=== PATIENT | female | born 1955 | race Caucasian/White ===

== ENCOUNTER 2017-11-15 10:14 | Day surgery (SDC) | payer OTHER ==
[2017-11-15] MEDS ORDERED: CEFAZOLIN 1 GM INJ (11:56)
[2017-11-15] MEDS ORDERED: ONDANSETRON 4 MG INJ (11:56)
[2017-11-15] MEDS ORDERED: ROCURONIUM 50 MG INJ (11:56)
[2017-11-15] MEDS ORDERED: PROPOFOL 20 ML ×4 (11:56→14:10)
[2017-11-15] MEDS ORDERED: MIDAZOLAM 1 MG/ML 2 ML INJ (11:56)
[2017-11-15] MEDS ORDERED: METOCLOPRAMIDE 10 MG INJ (11:57)
[2017-11-15] MEDS ORDERED: DEXAMETHASONE 4 MG/ML 1 ML INJ (13:33)
[2017-11-15] MEDS: BUPIVACAINE 0.5% (SDV) 30 ML INJ (14:02)
[2017-11-15] MEDS: LIDOCAINE 1%/EPI 30 ML INJ (14:02)
[2017-11-15] MEDS: IOHEXOL 300MG/ML 30 ML BTL (14:03)
[2017-11-15] MEDS ORDERED: ACETAMINOPHEN 1000MG/100ML IV 100 ML (14:22)
[2017-11-15] MEDS ORDERED: HYDROmorphONE (0.2 MG/ML) 10ML SYG IV (15:00)
[2017-11-15] MEDS ORDERED: OXYCODONE/ACETAMINOPHEN (5/325) TAB PO ×2 (15:00)
[2017-11-15] MEDS ORDERED: MEPERIDINE 25 MG INJ IV (15:03)
[2017-11-15] MEDS ORDERED: MEPERIDINE 25 MG INJ (15:05)
[2017-11-15] MEDS: HYDROmorphONE (0.2 MG/ML) 10ML SYG IV ×4 (15:06→15:25)
[2017-11-15] MEDS: ONDANSETRON 4 MG INJ IV (15:06)
[2017-11-15] MEDS: MEPERIDINE 25 MG INJ IV (15:13)
== END 2017-11-15 16:50 | disposition home or self-care (01) ==
LOC: SDS 10:14
DX: M48.56XA Collapsed vertebra, not elsewhere classified, lumbar region, initial encounter for fracture (principal)
CPT/HCPCS: 22514; 72100

== ENCOUNTER 2018-07-18 13:24 | Day surgery (SDC) | payer OTHER ==
[2018-07-18] MEDS ORDERED: LIDOCAINE 2% (SDV) 5 ML INJ (16:55)
[2018-07-18] MEDS ORDERED: PROPOFOL 60 ML (16:55)
== END 2018-07-18 18:33 | disposition home or self-care (01) ==
LOC: GIL 13:24
DX: Z12.11 Encounter for screening for malignant neoplasm of colon (principal); K64.8 Other hemorrhoids
CPT/HCPCS: 45378